=== PATIENT | female | born 1965 | race Caucasian/White ===

== ENCOUNTER → 2016-05-04 | Outpatient (CLI) | payer MEDICARE ==
[~2016-05-04] MED LIST: ACETAMINOPHEN325 MG PO; ALBUTEROL 0.5ML; ALBUTEROL 0.5ML INH; ALBUTEROL MININEB NEB; ALBUTEROL17 GM INH; ALDACTONE25 MG PO; ASPIRIN EC81 M1 PO; ASPIRIN81 M1 PO; ASPIRIN81 M2 PO; CARVEDILOL25 MG PO; COMBIVENT INH14.7 GM INH; COREG3.125 MG PO; COREG6.25 MG PO; CYMBALTA30 MG PO; FUROSEMIDE40 MG PO; LASIX PO; OMNICEF300 M1 PO; PREDNISONE PO; PREDNISONE1 MG; PREDNISONE10 MG/DOSE PO; PREDNISONE50 MG PO; PRINIVIL20 M1 PO; QVAR7.3 GM INH; SPIRIVA18 MCG INH; SYMBICORT INH; SYMBICORT PO; VENTILIN; ZANTAC; ZESTRIL40 MG PO; ZESTRIL5 MG PO; ZITHROMAX500 MG PO
--- NOTE | ~2016-05-04 | MY11 ---
[facility] A Service [facility] RADIOLOGY TEXT RESULTS PATIENT: LANDON ALVARADO LOCATION: [facility] #: [id number] : 61 UNIT #: [id number] AGE: [address]: Lowell Fuchs MD SEX: F ORDER DR: [id number] [facility] [place], [place] [address] [id number] O MR#: [id number] Acc #: [id number] NAME: LANDON ALVARADO. : 1965 SEX: F STUDY DATE/TIME: 05/04/2016 15:06 UNIT: [facility] ROOM: STUDY DESCRIPTION: MY Mammogram Screening Dig Magen Attending Physician: Lowell Fuchs M.D. Ordering Physician: Lowell Fuchs M.D. Primary Care Physician: Lowell Fuchs M.D. MEDICAL IMAGING REPORT This report is preliminary unless electronic signature is present EXAM Digital screening mammogram with CAD, 05/04/2016. HISTORY Routine screening. TECHNIQUE Bilateral CC and MLO views obtained on a digital mammography unit. FDA-approved CAD device was utilized. COMPARISON STUDIES 03/20/2015 FINDINGS Scattered fibroglandular densities. No dominant mass or suspicious calcification. IMPRESSION Negative screening mammogram. Screening interval in 1 year is suggested. Patients over the age of 40 are entered into a reminder system with target due date for the next mammogram. A result letter will also be sent to the patient. BIRADS: 1 Negative Dictated by... Craig Harding M.D. THIS IS AN ELECTRONICALLY VERIFIED REPORT [facility] A Service of [facility] RADIOLOGY TEXT RESULTS PATIENT: LANDON ALVARADO LOCATION: [facility] #: [id number] : 61 UNIT #: [id number] AGE: [address]: Lowell Fuchs MD SEX: F ORDER DR: Craig Harding M.D. at 05/05/2016 7:08 AM STANLEY/clair TD: 05/04/2016 19:05 JOB #: [id number] MEDICAL IMAGING REPORT COPY
== END | disposition home or self-care (01) ==
LOC: CWCC 14:35
DX: Z12.31 Encounter for screening mammogram for malignant neoplasm of breast (principal)
CPT/HCPCS: G0202

== ENCOUNTER → 2016-05-04 | Outpatient (CLI) | payer MEDICARE ==
[2016-05-04 16:36] LABS: BLOOD UREA NITROGEN 16 mg/dL (9-23); BUN/CREATININE RATIO 22.85; CARBON DIOXIDE 28 mmol/L (22-31); CHLORIDE 100 mmol/L (100-111); CREATININE SERUM 0.7 mg/dL (0.6-1.4); GLOM FILT RATE Estimated ABOVE60 mL/min (>60); GLUCOSE FASTING 103 mg/dL (70-110); POTASSIUM 3.7 mmol/L (3.5-5.1); SODIUM 137 mmol/L (135-145)
== END | disposition home or self-care (01) ==
LOC: CLAB 15:35
PROVIDERS: Internal Medicine Cardiovascular Disease
DX: I42.9 Cardiomyopathy, unspecified (principal)
CPT/HCPCS: 36415; 80048

== ENCOUNTER → 2016-09-14 | Outpatient (CLI) | payer MEDICARE ==
[2016-09-14 14:08] LABS: PROTHROMBIN TIME (PATIENT) 22.1 SECONDS (10.0-11.7)
[2016-09-14 14:28] LABS: CALCIUM SERUM 9.1 mg/dL (8.4-10.2); CREATININE SERUM 0.8 mg/dL (0.6-1.4); GLOM FILT RATE Estimated 84.2 mL/min (>60); MAGNESIUM 1.9 mg/dL (1.6-3.0); POTASSIUM 4.4 mmol/L (3.5-5.1)
== END | disposition home or self-care (01) ==
LOC: CLAB 13:30
PROVIDERS: Nurse Practitioner
DX: I42.9 Cardiomyopathy, unspecified (principal)
CPT/HCPCS: 36415; 80048; 83735; 85610

== ENCOUNTER → 2016-09-21 | Outpatient (CLI) | payer MEDICARE ==
[2016-09-21 12:24] LABS: INR 2.2; PROTHROMBIN TIME (PATIENT) 23.9 SECONDS (10.0-11.7)
[2016-09-21 13:08] LABS: BUN/CREATININE RATIO 21.25; CALCIUM SERUM 9.5 mg/dL (8.4-10.2); CREATININE SERUM 0.8 mg/dL (0.6-1.4); GLOM FILT RATE Estimated 84.2 mL/min (>60); MAGNESIUM 1.9 mg/dL (1.6-3.0); POTASSIUM 4.6 mmol/L (3.5-5.1)
== END | disposition home or self-care (01) ==
LOC: CLAB 11:44
PROVIDERS: Nurse Practitioner
DX: I42.9 Cardiomyopathy, unspecified (principal)
CPT/HCPCS: 36415; 80048; 83735; 85610

== ENCOUNTER → 2016-10-06 | Outpatient (CLI) | payer MEDICARE ==
[2016-10-06 15:11] LABS: INR 2.4; PROTHROMBIN TIME (PATIENT) 25.9 SECONDS (10.0-11.7)
[2016-10-06 15:17] LABS: CREATININE SERUM 0.7 mg/dL (0.6-1.4); GLOM FILT RATE Estimated 98.9 mL/min (>60); MAGNESIUM 1.9 mg/dL (1.6-3.0); POTASSIUM 4.2 mmol/L (3.5-5.1)
== END | disposition home or self-care (01) ==
LOC: CLAB 14:29
PROVIDERS: Nurse Practitioner
DX: Z51.81 Encounter for therapeutic drug level monitoring (principal); I42.9 Cardiomyopathy, unspecified; Z79.01 Long term (current) use of anticoagulants
CPT/HCPCS: 36415; 80048; 83735; 85610

== ENCOUNTER → 2016-10-12 | Outpatient (CLI) | payer MEDICARE ==
[2016-10-12 14:27] LABS: INR 1.3; PROTHROMBIN TIME (PATIENT) 13.9 SECONDS (10.0-11.7)
== END | disposition home or self-care (01) ==
LOC: CLAB 13:33
PROVIDERS: Nurse Practitioner
DX: Z51.81 Encounter for therapeutic drug level monitoring (principal); I42.9 Cardiomyopathy, unspecified; Z79.01 Long term (current) use of anticoagulants
CPT/HCPCS: 36415; 85610

== ENCOUNTER → 2016-10-19 | Outpatient (CLI) | payer MEDICARE ==
[2016-10-19 13:59] LABS: INR 1.4; PROTHROMBIN TIME (PATIENT) 15.6 SECONDS (10.0-11.7)
== END | disposition home or self-care (01) ==
LOC: CLAB 13:17
PROVIDERS: Nurse Practitioner
DX: Z51.81 Encounter for therapeutic drug level monitoring (principal); I42.9 Cardiomyopathy, unspecified; Z79.01 Long term (current) use of anticoagulants
CPT/HCPCS: 36415; 85610

== ENCOUNTER → 2016-11-02 | Outpatient (CLI) | payer MEDICARE ==
[2016-11-02 15:40] LABS: INR 2.5
== END | disposition home or self-care (01) ==
LOC: CLAB 14:45
PROVIDERS: Nurse Practitioner
DX: Z51.81 Encounter for therapeutic drug level monitoring (principal); I42.9 Cardiomyopathy, unspecified; Z79.899 Other long term (current) drug therapy
CPT/HCPCS: 36415; 85610

== ENCOUNTER → 2016-11-09 | Outpatient (CLI) | payer MEDICARE ==
[2016-11-09 14:55] LABS: INR 1.9; PROTHROMBIN TIME (PATIENT) 21.2 SECONDS (10.0-11.7)
[2016-11-09 15:27] LABS: BUN/CREATININE RATIO 22.85; CALCIUM SERUM 9.1 mg/dL (8.4-10.2); CREATININE SERUM 0.7 mg/dL (0.6-1.4); GLOM FILT RATE Estimated 98.9 mL/min (>60); MAGNESIUM 2.1 mg/dL (1.6-3.0)
== END | disposition home or self-care (01) ==
LOC: CLAB 13:54
PROVIDERS: Nurse Practitioner
DX: Z51.81 Encounter for therapeutic drug level monitoring (principal); I42.9 Cardiomyopathy, unspecified; Z79.01 Long term (current) use of anticoagulants
CPT/HCPCS: 36415; 80048; 83735; 85610

== ENCOUNTER → 2016-11-16 | Outpatient (CLI) | payer MEDICARE ==
[2016-11-16 15:52] LABS: INR 2.5; PROTHROMBIN TIME (PATIENT) 27.6 SECONDS (10.0-11.7)
== END | disposition home or self-care (01) ==
LOC: CLAB 15:15
PROVIDERS: Nurse Practitioner
DX: Z51.81 Encounter for therapeutic drug level monitoring (principal); I42.9 Cardiomyopathy, unspecified; Z79.01 Long term (current) use of anticoagulants
CPT/HCPCS: 85610

== ENCOUNTER → 2016-11-23 | Outpatient (CLI) | payer MEDICARE ==
[2016-11-23 14:19] LABS: INR 2.5; PROTHROMBIN TIME (PATIENT) 27.2 SECONDS (10.0-11.7)
[2016-11-23 15:37] LABS: BUN/CREATININE RATIO 22.85; CALCIUM SERUM 9.6 mg/dL (8.4-10.2); CREATININE SERUM 0.7 mg/dL (0.6-1.4); GLOM FILT RATE Estimated 98.9 mL/min (>60); MAGNESIUM 1.9 mg/dL (1.6-3.0); POTASSIUM 4.3 mmol/L (3.5-5.1)
== END | disposition home or self-care (01) ==
LOC: CLAB 13:34
PROVIDERS: Nurse Practitioner
DX: I42.9 Cardiomyopathy, unspecified (principal)
CPT/HCPCS: 36415; 80048; 83735; 85610